=== PATIENT | female | born 1970 | race Two or more races ===

== ENCOUNTER → 2019-02-23 | Day surgery (SDC) | payer OTHER ==
[~2019-02-23] MED LIST: IV RINGERS,LACTATED 1000ML 1,000 ML IV ONE; LIDOCAINE 2% PF 5 ML VIAL. ONE; LISI10TA2 PO; PROPOFOL 40 ML IV ONE
[2019-02-23 10:15] VITALS: BP 128/69
--- NOTE | 2019-02-23 10:16 | PREOP HP ---
DATE OF SERVICE: 02/23/2019 DATE OF PROCEDURE: 02/23/2019. REQUESTING PHYSICIAN: Rebecca Currie. REASON FOR PROCEDURE: Abdominal pain and colorectal cancer screening. HISTORY OF PRESENT ILLNESS: This is a 48-year-old female who presents today with abdominal pain and for colorectal cancer screening. ALLERGIES: AMOXICILLIN. PAST MEDICAL HISTORY: 1. Depression. 2. Hemorrhoids. SOCIAL HISTORY: She denies tobacco, alcohol or IV drug abuse. PAST SURGICAL HISTORY: Hysterectomy. REVIEW OF SYSTEMS: A 13-point review of systems was done. It is positive as per HPI and otherwise negative. PHYSICAL EXAMINATION: VITAL SIGNS: She is afebrile and her vital signs are stable. GENERAL: She is a well-developed, well-nourished female, in no apparent distress. HEENT: Oropharynx is clear. CARDIOVASCULAR: S1, S2. LUNGS: Clear. ABDOMEN: Normoactive bowel sounds, soft, nontender, nondistended. EXTREMITIES: No edema. NEUROLOGIC: Awake, alert and oriented x 3. ASSESSMENT AND PLAN: 1. Abdominal pain. 2. Colon cancer screening. The risks and benefits of both the upper and lower endoscopy including bleeding, perforation, non-diagnosis and sedation were explained and she has agreed to proceed. Thank you for allowing me to participate in the care of this patient. ARON VIEIRA MD DR: JEM/rahel JOB#: [id number] / [id number]
--- NOTE | 2019-02-24 16:06 | PATHOLOGY ---
[facility] Accession Number: [id number] . 01 Material submitted: . PART A: small bowel - SMALL BOWEL BIOPSY PART B: stomach - GASTRIC ANTRUM BODY BIOPSY. Modifiers: body PART C: esophagus - DISTAL ESOPHAGUS. Modifiers: distal PART D: ileum - TERMINAL ILEUM PART E: colon - RIGHT COLON BIOPSY. Modifiers: right PART F: colon - LEFT COLON BIOPSY. Modifiers: left . 01 Clinical history: . Abdominal pain, CRC screen . 02 Diagnosis: A. Small bowel biopsies: - No significant pathologic abnormalities. . B. Gastric biopsies, gastric antrum and gastric body: - Mild chronic antral gastritis. . C. Esophageal biopsies, distal esophagus: - Segments of esophagogastric and gastric mucosa showing chronic inflammation. . D. Terminal ileum biopsies: - No significant pathologic abnormalities. . E. Colonic mucosa, right colon biopsies: - No significant pathologic abnormalities. . F. Colonic mucosa, left colon biopsies: - No significant pathologic abnormalities. ([facility] 02/24/2019 1045 Local . 02 Comment: Sections of the small bowel biopsy reveal segments of duodenal and small intestine mucosa. Where best oriented, the mucosal villi show no sprue-like changes or significant inflammatory changes. . Sections of the gastric biopsy reveal segments of gastric antral and gastric body mucosa. The gastric body mucosa shows superficial congestion and minimal chronic inflammation. The gastric antral mucosa shows congestion and mild chronic inflammation. A properly controlled immunoperoxidase stain for Helicobacter is negative for Helicobacter organisms. . Sections of the distal esophageal biopsy reveal segments of esophagogastric and gastric mucosa showing mild to moderate chronic inflammation. There is no evidence of Martinez's change, dysplasia or malignancy. . Sections of the terminal ileum biopsy reveal segments of small intestine mucosa. Where best oriented, the mucosal villi show no sprue-like changes or significant inflammatory changes. . Sections of the right colon and left colon biopsies appear similar and reveal segments of colonic mucosa. There is no evidence of a chronic destructive colitis, lymphocytic colitis, or collagenous colitis. ([facility] 02/24/2019) . Special stain performed: Immunoperoxidase for Helicobacter on B1. . 02 Electronically signed: . Bobby Worthington MD, Pathologist NPI- [id number] . 01 Gross description: . A. The specimen is received in formalin, labeled "Moellman, Jeannie, small bowel BX", are three irregular fragments of xie soft tissue measuring 0.5 x 0.5 x 0.1 cm in aggregate. Entirely submitted in A1. . B. The specimen is received in formalin, labeled "Moellman, Jeannie, gastric antrum/body BX", are three irregular fragments of xie soft tissue measuring 0.5 x 0.5 x 0.2 cm in aggregate. Entirely submitted in B1. . C. The specimen is received in formalin, labeled "Moellman, Jeannie, distal esophagus BX", are few irregular fragments of xie soft tissue measuring 0.5 x 0.3 x 0.2 to cm in aggregate. Entirely submitted in C1. . D. The specimen is received in formalin, labeled "Moellman, Jeannie, terminal ileum BX", are two, irregular fragments of xie-torres, soft tissue measuring 0.2 cm and a 0.4 cm in greatest dimension. The specimen is entirely submitted in D1. . E. The specimen is received in formalin, labeled "Moellman, Jeannie, right colon BX", are four irregular fragments of xie soft tissue measuring 0.7 x 0.4 x 0.2 cm in aggregate. Entirely submitted in E1. . F. The specimen is received in formalin, labeled "Moellman, Jeannie, left colon BX", are four irregular fragments of xie soft tissue measuring 0.7 x 0.4 x 0.1 cm in aggregate. Entirely submitted in F1. ([facility]; 02/23/2019) [facility] 02/23/2019 1740 Local . 02 Pathologist provided ICD-10: K29.50, K20.8 . 02 CPT . 678893, 611774, 696137, [id number], [id number], [id number], [id number] Specimen Comment: A courtesy copy of this report has been sent to [phone] Specimen Comment: Report sent to / DR MORRIS Performed at: 01 [facility] [address], [place] [id number] MD Bud Lynch MD Phone: [phone] Performed at: 02 [facility] [address] [place], [place] [id number] MD Bobby Worthington MD Phone: [phone]
== END ==
LOC: SURG 07:56
PROVIDERS: ATTEND Internal Medicine Gastroenterology
DX: R10.84 Generalized abdominal pain (principal); K29.50 Unspecified chronic gastritis without bleeding; K21.0 Gastro-esophageal reflux disease with esophagitis; K57.30 Diverticulosis of large intestine without perforation or abscess without bleeding; K64.0 First degree hemorrhoids; F32.9 Major depressive disorder, single episode, unspecified; Z88.1 Allergy status to other antibiotic agents; Z90.710 Acquired absence of both cervix and uterus
CPT/HCPCS: 43239; 45380; 88305; 88342; J2001; J2704